=== PATIENT | female | born 1990 | race Caucasian/White ===

== ENCOUNTER 2022-02-12 19:35 | Outpatient (CLI) | payer OTHER ==
[2022-02-12 20:40] VITALS: BP 99/56
[2022-02-12] MEDS ORDERED: ACETAMINOPHEN 500 MG TAB PO ONE (22:45)
[2022-02-12 23:21] LABS: Bacteria,Urine 2+ /HPF (Negative); Bilirubin,Urine NEG (Negative); Blood,Urine NEG (Negative); Color,Urine Yellow (Yellow); Mucus,Urine FEW /HPF; Protein,Urine <15 mg/dL mg/dL (Negative); Urobilinogen,Urine < 2.0 mg/dL (<2.0)
[2022-02-12 23:24] LABS: Alanine Aminotransferase 11 units/L (7-56); Albumin 3.6 g/dL (3.9-5); Basophils % (Auto) 0.4 % (0.0-1.8); Blood Urea Nitrogen 5 mg/dL (7-17); Calcium 8.7 mg/dL (8.4-10.2); Eosinophils % (Auto) 0.1 % (0.0-4.3); Hematocrit 29.7 % (30.3-42.9); Hemolysis Index 4; Lymphocytes # (Auto) 0.8 K/mm3 (1.2-5.4); Lymphocytes % (Auto) 8.9 % (13.4-35.0); Mean Corpuscular HGB Conc 34 % (30-34); Mean Corpuscular Volume 89 fl (79-97); Monocytes # (Auto) 0.5 K/mm3 (0.0-0.8); Monocytes % (Auto) 5.8 % (0.0-7.3); Platelet Count 144 K/mm3 (140-440); Red Blood Count 3.32 M/mm3 (3.65-5.03); Red Cell Distribution Width 12.3 % (13.2-15.2)
[2022-02-12 23:48] LABS: BUN/Creatinine Ratio 10
--- NOTE | 2022-02-13 00:37 | Ultrasound Report ---
US OB limited INDICATION / CLINICAL INFORMATION: Illness exam evaluation of amniotic fluid index. COMPARISON: None available. TECHNIQUE: Using a transcutaneous probe, multiple grayscale, color Doppler, and spectral Doppler imag es of the uterus and fetus were captured and stored. FINDINGS: Single cephalic fetus with heart rate of 158 bpm is demonstrated. The amniotic fluid index is within normal limits measuring 18.4 cm. IMPRESSION: 1. Normal amniotic fluid index measuring 18.4 cm. Signer Name: Brian Live II, MD Signed: 02/13/2022 12:33 AM Workstation Name: [id number]
--- NOTE | 2022-02-13 00:58 | Ultrasound Report ---
US OB bpp ea add exam INDICATION / CLINICAL INFORMATION: Illness exam COMPARISON: Limited OB ultrasound same day. TECHNIQUE: Using a transcutaneous probe, multiple grayscale, color Doppler, and spectral Doppler imag es of the uterus and fetus were captured and stored. Biophysical variables including respirator y motion, motion, posture and tone, and qualitative amniotic fluid volume were scored. FINDINGS: BREATHING MOVEMENT = 2 GROSS BODY MOVEMENT = 2 TONE = 2 QUALITATIVE AMNIOTIC FLUID VOLUME = 2 TOTAL BIOPHYSICAL SCORE = 8/8 heart rate of 151 bpm. IMPRESSION: 1. biophysical profile score 8/8. Signer Name: Brian Live II, MD Signed: 02/13/2022 12:55 AM Workstation Name: [id number]
== END 2022-02-13 00:18 | disposition home or self-care (01) ==
LOC: TRG 19:35 → APU 19:40 → TRG 02-13 00:18
PROVIDERS: ATTEND Obstetrics & Gynecology
DX: O26.893 Other specified pregnancy related conditions, third trimester (principal); R50.9 Fever, unspecified; M54.50 Low back pain, unspecified; Z3A.28 28 weeks gestation of pregnancy
CPT/HCPCS: 36415; 76815; 80053; 81001; 85025; 87502